=== PATIENT | male | born 1995 | race Caucasian/White ===

== ENCOUNTER → 2024-04-13 | Outpatient (CLI) | payer BC, SELFPAY ==
--- NOTE | 2024-04-13 07:26 | US_ITS ---
PROCEDURE: ABDOMEN LIMITED REASON FOR EXAM: Alcohol abuse. COMPARISON: None FINDINGS: Liver: Diffusely echogenic suggesting fatty infiltration. Hepatomegaly. The liver measures 19 cm. Gallbladder: No stones, sludge, wall thickening or tenderness. Common bile duct: Normal measuring it measures 3.6 cm.. Pancreas: Obscured by bowel gas. Visualized portions of the right kidney are unremarkable. No right upper quadrant ascites. US/Abdomen Limited IMPRESSION: Hepatomegaly and diffuse fatty infiltration of the liver. The pancreas was not visualized due to overlying bowel gas. Reading Location: [id number]
== END | disposition home or self-care (01) ==
LOC: US 07:26
PROVIDERS: PCP Student in an Organized Health Care Education/Training Program; Referring Provider Student in an Organized Health Care Education/Training Program; Visit Provider Student in an Organized Health Care Education/Training Program
DX: F10.90 Alcohol use, unspecified, uncomplicated (principal)
CPT/HCPCS: 76705

== ENCOUNTER → 2024-04-29 | Outpatient (CLI) | payer BC, SELFPAY ==
--- NOTE | 2024-04-29 07:27 | US_ITS ---
PROCEDURE: ELASTOGRAPHY PARENCHYMA/ORGAN REASON FOR EXAM: FATTY LIVER TECHNIQUE: Ultrasound imaging of liver for elastography.. COMPARISON: None. FINDINGS: The mean kKPA is 6.9. the measured velocity is 1.5 m/sec. This corresponds to mild degree of liver fibrosis. F2. US/Elastography Parenchyma/Organ IMPRESSION: Metavir score: F 2 Reading Location: [place] [id number]
== END | disposition home or self-care (01) ==
LOC: US 07:27
PROVIDERS: PCP Student in an Organized Health Care Education/Training Program; Referring Provider Student in an Organized Health Care Education/Training Program; Visit Provider Student in an Organized Health Care Education/Training Program
DX: K76.0 Fatty (change of) liver, not elsewhere classified (principal)
CPT/HCPCS: 76981

== ENCOUNTER 2024-05-20 12:49 | Day surgery (SDC) | payer BC, SELFPAY ==
[2024-05-20] VITALS (10 sets, daily range): BP systolic 109–144; BP diastolic 63–104; PULSE 67–86; RESP 16–18; TEMP 36.2–37; O2SAT 97–100; BMI 39.1
--- NOTE | 2024-05-20 13:36 | PCM.PRE.AN2 ---
ASA Classification* ASA Classification ASA Classification: 3 Assessment & Plan Anesthesia* Anesthesia Assessment Anesthesia Assessment: Discussed sedation and/or anesthesia options, risks, benefits, and alternatives with patient/parents/legal guardian/POA. Questions invited. The patient/parents/legal guardian/POA seems to understand and agrees to proceed with anesthesia plan. Reviewed the physical assessment, medical history, allergy history and patient home medications list prior to surgery/procedure/anesthetic and documented any changes. Performed airway and anesthesia risk assessments. Anesthesia Type Anesthesia Type: MAC Anesthesia Focused Assessment* Temperature: 98.6 F Pulse Rate: 80 Blood Pressure: 144/104 Respiratory Rate: 16 Pulse Ox: 100 Airway Assessment Mouth opens: >3 cm Mallampati Score: II Focused Labs Anesthesia Preop lab: CBC CHEMISTRY COAG Pre-Assessment Diagnosis/Proposed Procedure Planned Operative Procedure(s): Colonoscopy,EGD Anesthesia History Anesthesia History - vice president of compliance: Anesthesia History - vice president of compliance Hx Hospitalization No 05/15/24 14:56 Any Problems With Anesthesia No 05/15/24 14:56 Cholinesterase deficiency No 05/15/24 14:56 You/Your Family Experience No 05/15/24 14:56 fever (hyperthermia) with Relationship Recent Exposure to Contagious No 05/20/24 13:12 Disease Does patient have nerve No 05/15/24 14:56 stimulator Patient instructed to have device shut off --Does patient have Pacemaker No 05/20/24 13:12 or ICD? When Was Last Pacemaker Check QUESTION #4 FULL TEXT: You/Your Family Experience fever (hyperthermia) with Anesthesia Last Oral Intake Last Oral intake: Last Oral Intake NPO since 00:00 05/20/24 13:12 Meds taken in AM with sips of water? Meds patient instructed to take am of surgery PONV PONV - vice president of compliance: PONV - vice president of compliance Female No 05/15/24 14:56 HX of Motion Sickness No 05/15/24 14:56 HX of N/V After Surgery No 05/15/24 14:56 Non-Smoker No 05/15/24 14:56 Duration of Surgery greater No 05/15/24 14:56 than 60 minutes Number of Risk Factors PONV Score Height & Weight Height & Weight: Anesthesia: Height & Weight Height 6 ft 3 in 05/20/24 13:12 Weight: 142 kg 05/20/24 13:12 Body Mass Index (BMI) 39.1 05/20/24 13:12 Respiratory Assessment Respiratory Assessment - vice president of compliance: Respiratory Tract Infection Hx - vice president of compliance Hx Respiratory Tract Infection No 05/15/24 14:56 STOP Sleep Apnea STOP Sleep Apnea - vice president of compliance: STOP Sleep Apnea - vice president of compliance Hx Hypertension Yes 05/15/24 14:56 Hx Sleep Apnea No 05/15/24 14:56 CPAP BIPAP Do you snore loudly (louder No 05/15/24 14:56 than talking or can be heard Do you often feel tired/ Yes 05/15/24 14:56 fatigued/ sleepy during daytime? Has anyone observed you stop Yes 05/15/24 14:56 breathing during sleep? STOP Results Positive 05/15/24 14:56 QUESTION #5 FULL TEXT : Do you snore loudly (louder than talking or can be heard through closed doors)? Tobacco Use History Tobacco Use History - vice president of compliance: Tobacco Use History - vice president of compliance Tobacco Use Smoking Status Current every day smoker 05/15/24 14:56 Hx Tobacco Use No 05/15/24 14:56 Years Smoking 10 05/15/24 14:56 Packs Smoked per Day Smoking Cessation Date was within the last 15 years Hx Smoking Cessation Date Hx Smoking Cessation No 05/15/24 14:56 Counseling Hematologic Medial History Hematologic Hx - vice president of compliance: Hematologic Medical Hx - butcher helper Hx of Blood Transfusion No 05/15/24 14:56 Hx of Transfusion in last 3 No 05/15/24 14:56 Months Date of Last Transfusion (if within last 3 months) Ever experience any problems No 05/15/24 14:56 with transfusion(s)? Specify any problems Hx of Preganancy in last 3 N/A 05/15/24 14:56 Months Nurse Filling Out Transfusion JZOLLINGE 05/15/24 14:56 & Questions: Date: 05/15/24 05/15/24 14:56 Time: 14:59 05/15/24 14:56 Patient unable to answer at this time (ie. confused, unrespo /Reproduction History /Reproductive History - vice president of compliance: /Reproductive Hx- vice president of compliance Hx Now No 05/15/24 14:56 Gestational Age (in weeks): EDC: Hx Hx Para Hx Section SAB No 05/15/24 14:56 PFS Medical History Anxiety Dietary restriction Smoker Sleep apnea Alcohol use disorder Home Medications ?Medication ?Instructions ?Recorded ?Last Taken ?Type omeprazole 40 mg capsule,delayed 40 mg PO QDAY 03/19/24 05/19/24 History release buspirone 10 mg tablet 10 mg PO TID 05/15/24 05/20/24 History escitalopram oxalate 20 mg tablet 20 mg PO DAILY 05/15/24 05/20/24 History losartan 100 1 tab PO DAILY 05/15/24 05/19/24 History mg-hydrochlorothiazide 12.5 mg tablet Allergy/AdvReac Type Severity Reaction Status Date / Time No Known Allergies Allergy Verified 05/20/24 13:11 Social History Smoking Status: Current every day smoker tobacco type: e-cigarettes Electronic Cigarette Use: with nicotine how long ago did patient quit smoking: two months alcohol intake: current Review of Systems (Anesthesia) ROS Narrative System reviewed and no additional complaints, except as documented.
--- NOTE | 2024-05-20 14:00 | EGD_PTH ---
PATIENT: OLEG COOLEY LOC: EN U#:[id number] AGE/SX: 28/M ROOM: RE05/20/[address]: Dr. Arsenio Renner DO : 1995 BED: DIS: 05/20/2024 SPEC #: [id number] RECD: 05/21/24 08:36 STATUS: RAVEN REFlor #: [id number] TERE: 05/20/24 14:[address]: Arsenio Renner DEPT: SURGICAL PATHOLOGY RECD BY: Otoniel Blanco ENTERED: 05/21/24 08:36 SP TYPE: EGD BIOPSY YAMILET DR: Dr. Annabella Grover DO Tissues: A - Esophagus, NOS Procedures: Surgery Specimen Level IV HEADER OPERATION: EGD with biopsy and dilatation PRE-OP DIAGNOSIS: GERD without esophagitis, dysphagia TISSUE SUBMITTED: A- Distal esophagus biopsy MICROSCOPIC DIAGNOSIS A. Distal esophagus, biopsy: * Benign squamous epithelium * Cardiac type mucosa with mild chronic inflammation and goblet cells, negative for dysplasia MICROSCOPIC DESCRIPTION Slides are reviewed. GROSS DESCRIPTION A. Received in formalin in a container labeled with the patient's name, date of , and distal esophagus biopsy are multiple iniguez-pink fragments of mucosal tissue measuring 0.8 x 0.8 x 0.3 cm in aggregate. Submitted in toto in A1. B 05-21-2024 CPT:67174
--- NOTE | 2024-05-20 14:07 | PCM.HP.STD ---
HPI - General General Date of Admission: 05/20/24 Date of Service: 05/20/24 Chief Complaint: globus sensation and dysphagia HPI Narrative OLEG COOLEY, is a 28 M who presents with the Chief Complaint: globus sensation Pt referred to [facility] from PCP after ED visit for chest pain and throat tightness. Cardiac work up was negative. He was placed on PPI. Pt does endorse anxiety and feels this was a contributing factor. On interview with pt, he feels a globus sensation in his esophagus all the time. It is especially worse after eating acidic foods. He does have heartburn but has been well controlled on omeprazole 40 mg daily over the past 5 weeks. He feels these symptoms started a few months ago after he stopped smoking. He has never had an upper endoscopy before. Denies lower abd pain, n/v, constipation, or diarrhea. -quit smoking months ago but vapes -quit drinking 2 years ago, was a heavy drinker [facility] Medical History Anxiety Dietary restriction Smoker Sleep apnea Alcohol use disorder Home Medications ?Medication ?Instructions ?Recorded ?Last Taken ?Type omeprazole 40 mg capsule,delayed 40 mg PO QDAY 03/19/24 05/19/24 History release buspirone 10 mg tablet 10 mg PO TID 05/15/24 05/20/24 History escitalopram oxalate 20 mg tablet 20 mg PO DAILY 05/15/24 05/20/24 History losartan 100 1 tab PO DAILY 05/15/24 05/19/24 History mg-hydrochlorothiazide 12.5 mg tablet Allergy/AdvReac Type Severity Reaction Status Date / Time No Known Allergies Allergy Verified 05/20/24 13:11 Social History Smoking Status: Current every day smoker tobacco type: e-cigarettes Electronic Cigarette Use: with nicotine how long ago did patient quit smoking: two months alcohol intake: current ROS Constitutional Constitutional: Denies fatigue, fever(s), poor appetite, weight gain or weight loss Gastrointestinal Gastrointestinal: Denies belching, bloating, change in bowel habits, change in stool character, chewing difficulty, coffee ground emesis, constipation, cramping, diarrhea, dyspepsia, dysphagia, early satiety, excessive flatus, fecal incontinence, heartburn, hematemesis, hematochezia, hemorrhoids, loose stools, melena, nausea, odynophagia, rectal bleeding, tenesmus, vomiting or weight changes Vital Signs Vital Signs Vital Signs: 05/20/24 13:12 05/20/24 13:12 05/20/24 13:36 Temperature 98.6 F 98.6 F Temperature Source Temporal Pulse Rate 80 80 Respiratory Rate 16 16 Respiratory Pattern Normal Blood Pressure 144/104 H 144/104 H Blood Pressure Mean 117 Blood Pressure Source Monitor Blood Pressure Position Semi-Fowlers Blood Pressure Location Right Arm Pulse Ox 100 100 Oxygen Delivery Method Room Air Weight Weight: 313 lb 0.902 oz Body Mass Index (BMI) 39.1 Physical Exam Const alert, oriented x3, no apparent distress and healthy appearing General Appearance: cooperative GI normal to inspection, nondistended, normoactive bowel sounds, soft to palpation, non-tender and non-distended Percussion: normal to percussion Rectal Exam: deferred Assessment & Plan Assessment/Plan (1) GERD without esophagitis: (2) Dysphagia: PLAN: Assessment and Plan Assessment and Plan (1) Dysphagia: Status: Acute Plan: This is a 28 yo male pt here today for evaluation of difficulty swallowing and globus sensation. This has been ongoing for a few months now after smoking cessation. He will undergo EGD to assess his upper GI tract for GERD, stricture or esophagitis. In the mean time, he will continue omeprazole 40 mg daily. Pt has a hx of alcohol abuse. I will order liver US. He will f/u after procedure. -EGD with dilation if indicated -Continue PPI -Liver US (2) Alcohol use disorder: Status: Acute Orders: Orders
--- NOTE | 2024-05-20 14:41 | OP.EGD_ITS ---
Patient Name: Francis Thompson Procedure Date: 05/20/2024 2:12 PM Date of : 1995 Age: 28 Procedure: Upper GI endoscopy Indications: Dysphagia Providers: Arsenio Renner DO Referring MD: Annabella Grover Do Medicines: Monitored Anesthesia Care Patient Profile: This is a 28 year old male. Refer to note in patient chart for documentation of history and physical. Patient has symptoms of chronic dysphagia and dysphagia with both liquids and solids. Complications: No immediate complications. Procedure: Pre-Anesthesia Assessment: - Prior to the procedure, a History and Physical was performed, and patient medications and allergies were reviewed. The patient is competent. The risks and benefits of the procedure and the sedation options and risks were discussed with the patient. All questions were answered and informed consent was obtained. Patient identification and proposed procedure were verified by the physician in the pre-procedure area. Mental Status Examination: alert and oriented. Airway Examination: normal oropharyngeal airway and neck mobility. Respiratory Examination: clear to auscultation. CV Examination: normal. Prophylactic Antibiotics: The patient does not require prophylactic antibiotics. Prior Anticoagulants: The patient has taken no anticoagulant or antiplatelet agents except for NSAID medication. ASA Grade Assessment: II - A patient with mild systemic disease. After reviewing the risks and benefits, the patient was deemed in satisfactory condition to undergo the procedure. The anesthesia plan was to use monitored anesthesia care (MAC). Immediately prior to administration of medications, the patient was re-assessed for adequacy to receive sedatives. The heart rate, respiratory rate, oxygen saturations, blood pressure, adequacy of pulmonary ventilation, and response to care were monitored throughout the procedure. The physical status of the patient was re-assessed after the procedure. After obtaining informed consent, the endoscope was passed under direct vision. Throughout the procedure, the patient's blood pressure, pulse, and oxygen saturations were monitored continuously. The Endoscope was introduced through the mouth, and advanced to the second part of duodenum. The upper GI endoscopy was accomplished without difficulty. The patient tolerated the procedure well. Scope In: 2:29:12 PM Scope Out: 2:35:10 PM Total Procedure Duration Time 0 hours 5 minutes 58 seconds Findings: LA Grade A (one or more mucosal breaks less than 5 mm, not extending between tops of 2 mucosal folds) esophagitis with no bleeding was found 34 to 38 cm from the incisors. Biopsies were taken with a cold forceps for histology. Verification of patient identification for the specimen was done. Estimated blood loss was minimal. A moderate Schatzki ring was found at the gastroesophageal junction. A guidewire was placed and the scope was withdrawn. Dilation was performed with a Savary dilator with no resistance at 60 Fr. The dilation site was examined and showed moderate improvement in luminal narrowing. Estimated blood loss was minimal. Abnormal motility was noted at the cricopharyngeus. The cricopharyngeus was abnormal. There is a decrease in motility of the esophageal body. The distal esophagus/lower esophageal sphincter is spastic, but gives up passage to the endoscope. Primary peristaltic waves are noted. No gross lesions were noted in the entire examined stomach. No gross lesions were noted in the second portion of the duodenum. Impression: - LA Grade A reflux esophagitis with no bleeding. Biopsied. - Moderate Schatzki ring. Dilated. - Abnormal esophageal motility, suspicious for esophageal spasm. - No gross lesions in the entire stomach. - No gross lesions in the second portion of the duodenum. Recommendation: - Discharge patient to home. - Resume previous diet. - Continue present medications. - Await pathology results. Procedure Code(s): --- Professional --- 07855, Esophagogastroduodenoscopy, flexible, transoral; with insertion of guide wire followed by passage of dilator(s) through esophagus over guide wire 41930, 59,51, Esophagogastroduodenoscopy, flexible, transoral; with biopsy, single or multiple CPT copyright 2021 [employer]. All rights reserved. The codes documented in this report are preliminary and upon inspector integrated circuits review may be revised to meet current compliance requirements. Arsenio Renner DO 05/20/2024 2:41:03 PM This report has been signed electronically. Number of Addenda: 0 Note Initiated On: 05/20/2024 2:12 PM
--- NOTE | 2024-05-20 14:41 | OP.CCLET_ITS ---
05/20/2024 Annabella Grover Do Re : Upper GI endoscopy procedure for Francis Thompson Dear Dr. Grover This procedure was performed on Monday, May 20, 2024. My impressions and recommendations are as follows: Impressions : - LA Grade A reflux esophagitis with no bleeding. Biopsied. - Moderate Schatzki ring. Dilated. - Abnormal esophageal motility, suspicious for esophageal spasm. - No gross lesions in the entire stomach. - No gross lesions in the second portion of the duodenum. Recommendations : - Discharge patient to home. - Resume previous diet. - Continue present medications. - Await pathology results. My findings are described in the full procedure note, which is enclosed. If I can be of further assistance, please feel free to contact me at . Sincerely, Arsenio Renner, 05/20/2024 2:41:03 PM This report has been signed electronically.
--- NOTE | 2024-05-20 14:47 | PCM.POST.ANE ---
Anesthesia: Postop Eval I Current Vital Signs Temperature: 97.2 F Pulse Rate: 72 Blood Pressure: 109/63 Respiratory Rate: 16 Pulse Ox: 98 Oxygen Delivery Method: Room Air Assessment Airway patent: Yes Spontaneous unlabored respirations: Yes Mental status: Asleep nausea: No Vomiting: No Anesthesia Complication: No Fluid Hydration Crystalloid volume administer (ml): 45 Total IV fluid infused: 45 Progress Note Anesthesia document: Postop Eval 1 completed: Yes
--- NOTE | 2024-05-20 15:01 | PCM.POSTANE2 ---
Anesthesia Postop Eval I Sum Postop Eval Completion status Anesthesia document: Postop Eval 1 completed: Yes Anesthesia Postop Eval I Summary Anesthesia Postop Eval I Summary: Anesthesia Postop Eval I: Assessment Summary Airway patent Yes 05/20/24 14:48 [email or web address] Spontaneous unlabored Yes 05/20/24 14:48 [email or web address] respirations Mental status Asleep 05/20/24 14:48 [email or web address] nausea No 05/20/24 14:48 [email or web address] Vomiting No 05/20/24 14:48 [email or web address] Anesthesia Postop Eval I: Fluid Summary Crystalloid volume administer 45 05/20/24 14:48 [email or web address] (ml) Colloids volume administered ( ml) Blood Product volume administered (ml) Total IV fluid infused 45 05/20/24 14:48 [email or web address] Anesthesia Postop Eval I: Summary Notes Anesthesia Complication No 05/20/24 14:48 [email or web address] Anesthesia Complication Comment: Post-operative progress note Anesthesia: Postop Eval II Evaluation Mental status: Awake Pain Level: 0 nausea: No Vomiting: No
== END 2024-05-20 15:31 | disposition home or self-care (01) ==
LOC: EN 12:51 → AC 12:52
PROVIDERS: PCP Student in an Organized Health Care Education/Training Program; Referring Provider Student in an Organized Health Care Education/Training Program; Visit Provider Internal Medicine Gastroenterology
PROC: 0DJ08ZZ Inspection of Upper Intestinal Tract, Via Natural or Artificial Opening Endoscopic (ICD-10-PCS; CPT 43235; principal; 2024-05-20 13:55)
DX: R13.10 Dysphagia, unspecified (principal); Z87.891 Personal history of nicotine dependence; F41.9 Anxiety disorder, unspecified; Z79.899 Other long term (current) drug therapy; F10.90 Alcohol use, unspecified, uncomplicated; K21.00 Gastro-esophageal reflux disease with esophagitis, without bleeding; K22.2 Esophageal obstruction; K30 Functional dyspepsia
CPT/HCPCS: 43248; 43239; 88305; A4216; C1769; J2405